=== PATIENT | female | born 1975 | race Caucasian/White ===

== ENCOUNTER 2018-09-22 09:53 | Emergency (ER) | payer OTHER ==
[2018-09-22 10:02] VITALS: BP 131/78; PULSE 84; TEMP 99.4; BMI 26.5
[2018-09-22 10:44] LABS: EOS % 8.1 % (0-4.5); HEMATOCRIT 39.6 % (32.4-45.2); HEMOGLOBIN 13.1 GM/dL (10.7-15.3); LYMPH % 30.9 % (8-40); MCH 29.8 pg (25.7-33.7); MCHC 33.2 g/dl (32.0-36.0); MEAN CELL VOLUME 89.8 fl (80-96); MEAN PLT VOLUME 8.4 fl (7.5-11.1); MONO % 6.2 % (3.8-10.2); NEUT % 53.8 % (42.8-82.8); PLATELET COUNT 303 K/MM3 (134-434); RBC 4.41 M/mm3 (3.60-5.2); RDW 12.3 % (11.6-15.6); WHITE BLOOD COUNT 6.9 K/mm3 (4.0-10.0)
--- NOTE | 2018-09-22 10:57 | PDOC ---
History of Present Illness <Ranjit Eaton - Last Filed: 09/22/18 12:46> - History of Present Illness Initial Comments: 43 yo F with history of asthma, fibroids, and anemia presenting with chest pain x 1 month. Patient reports that she decided to come in because the pain is occuring more frequently, about once an hour, is greater in severity, now 8/10, and now associated with left arm tingling. The pain is non-radiating and described as squeezing. No nausea, vomiting, or diaporesis. Patient says this chest pain is similar to that she has had in the past. Patient also reports having palpitations last night.Her online banking specialist is Dr. Figueroa who practices in the [place]. Patient describes being evaluated with a 24 hour holter monitor over the summer and a stress test last year. She is unsure of the results but assumes they were normal because she did not hear anything back. No personal or family history of DC. No HTN, HLD, DM, or smoking history. No hemoptysis, no recent surgical history, no recent mobilization, no hormone use, no history of DVT or PE. Denies fevers, chills, shortness of breath, or abdominal pain. <Whit Woo - Last Filed: 09/22/18 13:53> - General Chief Complaint: Chest Pain Stated Complaint: PALPITATIONS,CHEST PAIN Time Seen by Provider: 09/22/18 10:13 Past History <Ada Eatonele - Last Filed: 09/22/18 12:46> - Past Medical History COPD: No - Immunization History Immunization Up to Date: No - Suicide/Smoking/Psychosocial Hx Smoking History: Never smoked Substance Use Type: None <Whit Woo - Last Filed: 09/22/18 13:53> - Past Medical History Allergies/Adverse Reactions: Allergies Allergy/AdvReac Type Severity Reaction Status Date / Time No Known Allergies Allergy Verified 09/22/18 09:58 Home Medications: Ambulatory Orders NK [No Known Home Medication] 09/22/18 Review of Systems - Review of Systems Comments:: Constitutional: no fever, no chills HEENT: no throat pain, no dysphagia Cardiovascular: +chest pain, +palpitations Respiratory: no cough, no shortness of breath Gastrointestinal: no abdominal pain, no nausea, no vomiting Genitourinary: no dysuria, no frequency Musculoskeletal: no myalgia, no arthralgia Skin: no rash, no itching Neurologic: no headache, no dizziness <Odalis WooWhit - Last Filed: 09/22/18 13:53> *Physical Exam - Vital Signs Last Vital Signs Temp Pulse Resp BP Pulse Ox 99.4 F 84 16 131/78 97 09/22/18 09:59 09/22/18 09:59 09/22/18 09:59 09/22/18 09:59 09/22/18 09:59 <UmaRanjit - Last Filed: 09/22/18 12:46> - Vital Signs Last Vital Signs Temp Pulse Resp BP Pulse Ox 99.4 F 84 16 131/78 97 09/22/18 09:59 09/22/18 09:59 09/22/18 09:59 09/22/18 09:59 09/22/18 09:59 - Physical Exam Comments: General: Awake, alert, and fully oriented, in no acute distress Head: No signs of trauma Eyes: EOMI, sclera anicteric ENT: Moist mucus membranes Neck: Normal ROM, supple Lungs: Lungs clear, Normal breath sounds Cardio: Regular rhythm, S1 and S2 present Abdomen: Soft, nontender. No guarding, no rebound, no masses Extremities: Normal range of motion, Distal pulses present SKIN: Warm, Dry, normal turgor Neurologic: Cranial nerves II through XII grossly intact. Normal speech <Whit Woo - Last Filed: 09/22/18 13:53> ED Treatment Course - LABORATORY CBC & Chemistry Diagram: 09/22/18 10:36 09/22/18 10:27 - ADDITIONAL ORDERS Additional order review: Laboratory Results 09/22/18 09/22/18 09/22/18 10:36 10:36 10:27 PT with INR 11.80 INR 1.00 PTT (Actin FS) 32.1 Sodium 141 Potassium 3.8 Chloride 109 H Carbon Dioxide 24 Anion Gap 8 BUN 8 Creatinine 0.6 Creat Clearance w eGFR > 60 Random Glucose 98 Calcium 7.8 L Total Bilirubin 0.3 AST 33 ALT 67 H Alkaline Phosphatase 159 H Troponin I < 0.02 B-Natriuretic Peptide 25.0 Total Protein 6.5 Albumin 3.2 L TSH 3.20 Serum , Qual Negative 09/22/18 10:36 RBC 4.41 MCV 89.8 MCHC 33.2 RDW 12.3 MPV 8.4 Neutrophils % 53.8 Lymphocytes % 30.9 Monocytes % 6.2 Eosinophils % 8.1 H Basophils % 1.0 <Ranjit Eaton - Last Filed: 09/22/18 12:46> - LABORATORY CBC & Chemistry Diagram: 09/22/18 10:36 09/22/18 10:27 - ADDITIONAL ORDERS Additional order review: 09/22/18 10:36 RBC 4.41 MCV 89.8 MCHC 33.2 RDW 12.3 MPV 8.4 Neutrophils % 53.8 Lymphocytes % 30.9 Monocytes % 6.2 Eosinophils % 8.1 H Basophils % 1.0 - RADIOLOGY Radiology Studies Ordered: Category Date Time Status CHEST PA & LAT [RAD] Stat Radiology 09/22/18 10:21 Ordered <Whit Woo - Last Filed: 09/22/18 13:53> Medical Decision Making - Medical Decision Making 43 yo F with history of asthma, fibroids, and anemia presenting with chest pain x 1 month. -Cardiac workup, TSH, BNP -TSH and BNP normal -No leukocytosis or anemia -Patient not currently endorsing pain -CXR without acute pathology -EKG: rate 85, QTc 452, NSR -Tpn negative. Patient instructed to follow up with online banking specialist this week. -HEART score is 2 (due to age and history) -Discharge. Patient amenable to plan <Whit Woo - Last Filed: 09/22/18 13:53> *DC/Admit/Observation/Transfer <Ranjit Eaton - Last Filed: 09/22/18 12:46> <Whit Woo - Last Filed: 09/22/18 13:53> Diagnosis at time of Disposition: Atypical chest pain - Discharge Dispostion Disposition: HOME Condition at time of disposition: Stable - Patient Instructions Printed Discharge Instructions: DI for Atypical Chest Pain Additional Instructions: Activity as tolerated. Stay hydrated. Blood tests, an EKG, and a chest x-ray performed today showed no acute abnormalities. Continue your medications as previously prescribed by your physician. You should follow up with your online banking specialist Dr. Figueroa as soon as possible regarding today's emergency department visit. Further testing such as a stress test or an echocardiogram are necessary to further evaluate the cause of your symptoms. Return to the emergency department for any new or concerning symptoms, particularly persistent or worsening chest pain, difficulty breathing, persistent palpitations, fevers or chills.
[2018-09-22 11:11] LABS: PROTHROMBIN TIME (PATIENT) 11.8 SEC (9.7-13.0)
[2018-09-22 11:14] LABS: ACTIVATED PTT 32.1 SECONDS (25.2-36.5)
[2018-09-22 11:20] LABS: ALBUMIN 3.2 g/dl (3.4-5.0); ALK PHOS 159 U/L (45-117); ANION GAP 8 MMOL/L (8-16); BILIRUBIN,TOTAL 0.3 mg/dL (0.2-1); BLOOD UREA NITROGEN 8 mg/dL (7-18); CALCIUM 7.8 mg/dL (8.5-10.1); CHLORIDE 109 mmol/L (98-107); CO2 24 mmol/L (21-32); CREATININE 0.6 mg/dL (0.55-1.3); GLUCOSE,RANDOM 98 mg/dL (74-106); POTASSIUM 3.8 mmol/L (3.5-5.1); SGOT/AST 33 U/L (15-37); SGPT/ALT 67 U/L (13-61); SODIUM 141 mmol/L (136-145); TOT PROT 6.5 g/dl (6.4-8.2)
--- NOTE | 2018-09-22 12:07 | PDOC ---
Attending Attestation - Resident Resident Name: AmnaSalazarWhit - ED Attending Attestation I have performed the following: I have examined & evaluated the patient, The case was reviewed & discussed with the resident, I agree w/resident's findings & plan - HPI HPI: 09/22/18 11:58 43-year-old female with no severe past medical history significant significant past medical history presents with intermittent chest pain for months. Reports random episodes of sharp and then pressure-like pain to the left chest, lasts for seconds or up to 1 minute, associated with some shortness of breath and palpitations. Has baseline 2-3 flight exertional dyspnea that has been evaluated with stress test in the past, reportedly normal one year ago. Had Holter monitor this summer that was also reportedly normal. No leg swelling or leg cramping, denies any smoking or drug use, no relevant family history, no PE risk factors. Resents today secondary to persistent symptoms, no change in pattern. - Physicial Exam PE: 09/22/18 12:02 Vital signs normal Well-appearing without respiratory distress Heart is regular, no ectopy noted, no murmurs Lungs are clear No leg swelling or calf tenderness - Medical Decision Making 09/22/18 12:02 43-year-old female with no significant past medical history presents with atypical chest pain intermittently for months, possibly years. Persistent symptoms so presents for evaluation, otherwise no change in her symptom pattern. Heart score is 1, atypical presenation for ACS. low clinical suspicion for PE, PERC clear labs including trop cxr, ekg if above wnl, has f/u with her associate music professor Dr. Figueroa in the [place], and is candidate for outpt stress testing 09/22/18 12:48 Workup negative including troponin, EKG, chest x-ray. Feels well, has follow-up with her associate music professor, understands return criteria. Heart Score/ECG Review - History History: Slightly suspicious - Electrocardiogram EKG: Normal - Age Age: 45-65 - Risk Factors Based on the list above the patient has:: No risk factors known - Troponin Troponin: </= normal limit - Score Heart Score - Total: 1 #1 ECG reviewed & interpreted by me at: 10:04 General ECG Interpretation: Sinus Rhythm, Normal Rate (85), Normal Intervals ( qtc 452, IRBBB), No acute ischemic changes
--- NOTE | 2018-09-23 10:51 | EKG ---
Test Reason : Blood Pressure : / mmHG Vent. Rate : 085 BPM Atrial Rate : 085 BPM P-R Int : 150 ms QRS Dur : 076 ms QT Int : 380 ms P-R-T Axes : 065 020 058 degrees QTc Int : 452 ms NORMAL SINUS RHYTHM POSSIBLE LEFT ATRIAL ENLARGEMENT BORDERLINE ECG NO PREVIOUS ECGS AVAILABLE Confirmed by SHANE AQUINO MD ([id number]) on 09/23/2018 10:51:27 AM Referred By: Confirmed By:SHANE AQUINO MD
== END 2018-09-22 12:51 | disposition home or self-care (01) ==
LOC: JER 09:53
DX: R07.9 Chest pain, unspecified (principal); Z86.2 Personal history of diseases of the blood and blood-forming organs and certain disorders involving the immune mechanism; Z87.09 Personal history of other diseases of the respiratory system
CPT/HCPCS: 36415; 71046-TC-FY; 80053; 83880; 84443; 84484; 84703; 85025; 85610; 85730; 93005; 93010; 99284-25